=== PATIENT | male | born 1990 | race Caucasian/White ===

== ENCOUNTER 2016-08-27 11:33 | Emergency (ER) | payer OTHER ==
[2016-08-27 11:45] VITALS: RESP 16
[2016-08-27] MEDS ORDERED: KETOROLAC 60 MG/2 ML VIAL IM STA (12:07)
[2016-08-27] MEDS ORDERED: DIAZEPAM 5 MG TAB PO STA (12:08)
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
--- NOTE | 2016-08-27 12:48 | XR ---
EXAMINATION TYPE: XR thoracic spine complete DATE OF EXAM: 08/27/2016 COMPARISON: NONE HISTORY: Pain Alignment is anatomic. There is no compression deformities. Vertebral body height and disc [place]sp[place] are maintained. IMPRESSION: 1. No acute abnormality.
--- NOTE | 2016-08-27 12:48 | XR ---
EXAM TYPE: LUMBAR SPINE X RAY SERIES COMPARISON: NONE HISTORY: Pain TECHNIQUE: 4 views are submitted. FINDINGS: Alignment is anatomic. The pedicles are intact. The transverse processes are intact. There is no s pondylolysis or spondylolisthesis. IMPRESSION: 1. No acute process.
--- NOTE | 2016-08-27 12:49 | XR ---
EXAMINATION TYPE: XR cervical spine limited DATE OF EXAM: 08/27/2016 COMPARISON: NONE HISTORY: Pain TECHNIQUE: 3 views are submitted. FINDINGS: The odontoid is intact. There are no compression deformities. The prevertebral soft tissue structur es are within normal limits. IMPRESSION: 1. No acute process.
[2016-08-27 13:44] VITALS: BP 118/72; PULSE 64; TEMP 97.8
== END 2016-08-27 13:44 | disposition home or self-care (01) ==
LOC: EC 11:33
DX: M54.5 Low back pain (principal); M54.2 Cervicalgia; M25.552 Pain in left hip; F17.200 Nicotine dependence, unspecified, uncomplicated; V87.8XXA Person injured in other specified noncollision transport accidents involving motor vehicle (traffic), initial encounter; Y92.410 Unspecified street and highway as the place of occurrence of the external cause
CPT/HCPCS: 72072; 72040; 72100; 99284; 96372; J1885

== ENCOUNTER 2020-02-17 19:27 | Emergency (ER) | payer OTHER ==
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
[2020-02-17] MEDS ORDERED: DEXAMETHASONE SOD PHOSPHATE 10 MG/ML 1 ML VIAL IM STA (20:07)
[2020-02-17 20:21] VITALS: BP 148/88; PULSE 97; RESP 17; TEMP 98.1
== END 2020-02-17 20:19 | disposition home or self-care (01) ==
LOC: EC 19:27
DX: R51.9 Headache, unspecified (principal); H92.02 Otalgia, left ear; M79.89 Other specified soft tissue disorders; Z87.891 Personal history of nicotine dependence
CPT/HCPCS: 96372; 99282; J1100

== ENCOUNTER 2023-07-29 18:27 | Emergency (ER) | payer OTHER ==
[2023-07-29 18:33] VITALS: RESP 18
--- NOTE | 2023-07-29 18:59 | XR ---
EXAMINATION TYPE: XR hand complete LT DATE OF EXAM: 07/29/2023 COMPARISON: None HISTORY: Finger injury third digit TECHNIQUE: 3 view left hand FINDINGS: Soft tissue swelling is over the distal left middle finger. No underlying osseous abnormality evident. No acute fractures evident. Joint spaces are preserved. Fo llow up exams can be made for continued pain. IMPRESSION: 1. No acute osseous abnormality left hand. 2. Soft tissue swelling distal dorsal third digit left hand
--- NOTE | 2023-07-29 19:59 | ED ---
General Adult HPI - General Chief complaint: Extremity Injury, Upper Stated complaint: left hand injury Time Seen by Provider: 07/29/23 19:24 Source: patient, RN notes reviewed Mode of arrival: ambulatory Limitations: no limitations - History of Present Illness Initial comments: 32-year-old male presents to the emergency department for evaluation of the left middle finger injury. Patient reports that on Friday he crushed his finger between two pieces of wood. He reports that this occurred on Friday. He reports continued swelling. He states that he poked a hole in his nail when this happened on Friday which improved the pressure in his finger. He is able to flex and extend the finger. - Related Data Home Medications Medication Instructions Recorded Confirmed Ibuprofen [Motrin] 800 mg PO DAILY PRN 08/27/16 08/27/16 Previous Rx's Medication Instructions Recorded Cyclobenzaprine [Flexeril] 10 mg PO TID #20 tab 08/27/16 Ibuprofen [Motrin] 800 mg PO Q6HR #30 tab 08/27/16 dexAMETHasone [Decadron] 0.75 mg PO DIRECTED #12 tablet 08/27/16 Allergies Allergy/AdvReac Type Severity Reaction Status Date / Time Penicillins AdvReac Swelling Verified 02/17/20 19:38 Review of Systems ROS Statement: Those systems with pertinent positive or pertinent negative responses have been documented in the HPI. ROS Other: All systems not noted in ROS Statement are negative. Past Medical History Past Medical History: No Reported History History of Any Multi-Drug Resistant Organisms: None Reported Past Surgical History: No Surgical Hx Reported Past Psychological History: No Psychological Hx Reported Smoking Status: Former smoker Past Alcohol Use History: None Reported Past Drug Use History: None Reported General Exam Limitations: no limitations General appearance: alert, in no apparent distress Head exam: Present: atraumatic, normocephalic, normal inspection Eye exam: Present: normal appearance, PERRL, EOMI. Absent: scleral icterus, conjunctival injection, periorbital swelling Neck exam: Present: normal inspection. Absent: tenderness, meningismus, lymphadenopathy Respiratory exam: Present: normal lung sounds bilaterally. Absent: respiratory distress, wheezes, rales, rhonchi, stridor Cardiovascular Exam: Present: regular rate, normal rhythm, normal heart sounds. Absent: systolic murmur, diastolic murmur, rubs, gallop, clicks Extremities exam: Present: full ROM, tenderness, normal capillary refill, other (Swelling to left middle digit distal). Absent: pedal edema, joint swelling, calf tenderness Neurological exam: Present: alert, oriented X3 Psychiatric exam: Present: normal affect, normal mood Skin exam: Present: warm, dry, normal color, other (Subungual hematoma to the left middle digit). Absent: intact Course Vital Signs 07/29/23 07/29/23 18:31 20:34 Temperature 98.1 F 98.2 F Pulse Rate 109 H 98 Respiratory 18 18 Rate Blood Pressure 144/95 140/92 O2 Sat by Pulse 98 98 Oximetry Medical Decision Making - Medical Decision Making Was pt. sent in by a medical professional or institution (, PA, HAND PACKAGER, urgent care, hospital, or fpc...) When possible be specific @ -No Did you speak to anyone other than the patient for history (EMS, parent, family, police, friend...)? What history was obtained from this source @ -No Did you review nursing and triage notes (agree or disagree)? Why? @ -I reviewed and agree with nursing and triage notes Were old charts reviewed (outside hosp., previous admission, EMS record, old EKG, old radiological studies, urgent care reports/EKG's, fpc records)? Report findings @ -No old charts were reviewed Differential Diagnosis (chest pain, altered mental status, abdominal pain women, abdominal pain men, vaginal bleeding, weakness, fever, dyspnea, syncope, headache, dizziness, GI bleed, back pain, seizure, CVA, palpatations, mental health, musculoskeletal)? @ -Differential Musculoskeletal Muscular strain, contusion, ligament sprain, fracture, arthritis, septic arthritis, bursitis, cellulitis, muscle spasm, nerve compression, DVT, arterial occlusion, herpes zoster, electrolyte abnormality, tumor.... This is not meant to be in all inclusive list EKG interpreted by me (3pts min.). @ -None X-rays interpreted by me (1pt min.). @ -X-ray of the left hand obtained shows no evidence of acute fracture CT interpreted by me (1pt min.). @ -None done U/S interpreted by me (1pt. min.). @ -None done What testing was considered but not performed or refused? (CT, X-rays, U/S, labs)? Why? @ -None What meds were considered but not given or refused? Why? @ -None Did you discuss the management of the patient with other professionals (professionals i.e. , PA, HAND PACKAGER, lab, RT, psych nurse, director social, cream gatherer, teacher, unemployment insurance hearing officer, disease case manager)? Give summary @ -No Was smoking cessation discussed for >3mins.? @ -No Was critical care preformed (if so, how long)? @ -No Were there social determinants of health that impacted care today? How? (Homelessness, low income, unemployed, alcoholism, drug addiction, transportation, low edu. Level, literacy, decrease access to med. care, halfway, rehab)? @ -No Was there de-escalation of care discussed even if they declined (Discuss DNR or withdrawal of care, Hospice)? DNR status @ -No What co-morbidities impacted this encounter? (DM, HTN, Smoking, COPD, CAD, Cancer, CVA, ARF, Chemo, Hep., AIDS, mental health diagnosis, sleep apnea, morbid obesity)? @ -None Was patient admitted / discharged? Hospital course, mention meds given and route, prescriptions, significant lab abnormalities, going to OR and other pertinent info. @ -Discharged. Patient presented to the ED for evaluation of middle finger injury. Patient reports draining subungual hematoma when the injury occurred. XR obtained shows no evidence of acute fracture. Patient provided finger splint at his request. Advised continuation of anti-inflammatories and icing. He is understanding and agreeable with plan. Patient stable at time of discharge. Case discussed with Dr. French. Undiagnosed new problem with uncertain prognosis? @ -No Drug Therapy requiring intensive monitoring for toxicity (Heparin, Nitro, Insulin, Cardizem)? @ -No Were any procedures done? @ -No Diagnosis/symptom? @ -Subungual hematoma, finger swelling Acute, or Chronic, or Acute on Chronic? @ -Acute Uncomplicated (without systemic symptoms) or Complicated (systemic symptoms)? @ -Uncomplicated Side effects of treatment? @ -No Exacerbation, Progression, or Severe Exacerbation? @ -No Poses a threat to life or bodily function? How? (Chest pain, [place], PR, pneumonia, PE, COPD, DKA, ARF, appy, cholecystitis, CVA, Diverticulitis, Homicidal, Suicidal, threat to staff... and all critical care pts) @ -No Disposition Clinical Impression: Finger contusion, Subungual hematoma Disposition: HOME SELF-CARE Condition: Stable Instructions (If sedation given, give patient instructions): Subungual Hematoma (ED) Additional Instructions: Please follow up with your primary care provider. Return to the emergency department for new or worsening symptoms. Is patient prescribed a controlled substance at d/c from ED?: No Referrals: None,Stated [Primary Care Provider] - 1-2 days
[2023-07-29] MEDS: DIPH,PERTUS(ACELL)TETVAC-LF 0.5 ML VIAL IM ONE (20:25)
[2023-07-29 20:36] VITALS: BP 140/92; PULSE 98; TEMP 98.2
== END 2023-07-29 20:34 | disposition home or self-care (01) ==
LOC: EC 18:27
DX: S60.032A Contusion of left middle finger without damage to nail, initial encounter (principal); Z87.891 Personal history of nicotine dependence; Z88.0 Allergy status to penicillin; Z23 Encounter for immunization; W23.0XXA Caught, crushed, jammed, or pinched between moving objects, initial encounter
CPT/HCPCS: 90471; 90715; 99283